=== PATIENT | female | born 1960 | race Caucasian/White ===

== ENCOUNTER → 2017-09-03 | Outpatient (CLI) | payer OTHER | LOC: MC.RAD 12:58 | DX: Z12.31 Encounter for screening mammogram for malignant neoplasm of breast (principal) ==

== ENCOUNTER → 2019-03-03 | Outpatient (CLI) | payer OTHER | LOC: MC.RAD 11:26 | DX: Z12.31 Encounter for screening mammogram for malignant neoplasm of breast (principal) ==

== ENCOUNTER → 2020-07-09 | Outpatient (CLI) | payer OTHER | LOC: MC.RAD 15:08 | DX: Z12.31 Encounter for screening mammogram for malignant neoplasm of breast (principal) ==

== ENCOUNTER → 2020-07-15 | Outpatient (CLI) | payer OTHER | LOC: MC.RAD 08:16 | DX: R92.2 Inconclusive mammogram (principal) ==

== ENCOUNTER → 2021-07-23 | Outpatient (CLI) | payer OTHER | END | disposition still patient (30) | LOC: MC.RAD 12:00 | DX: Z12.31 Encounter for screening mammogram for malignant neoplasm of breast (principal); R92.0 Mammographic microcalcification found on diagnostic imaging of breast ==

== ENCOUNTER → 2021-07-25 | Outpatient (CLI) | payer OTHER | LOC: MC.RAD 06:59 | DX: R92.0 Mammographic microcalcification found on diagnostic imaging of breast (principal) ==

== ENCOUNTER → 2021-08-06 | Outpatient (CLI) | payer OTHER | LOC: MC.RAD 06:51 | DX: R92.1 Mammographic calcification found on diagnostic imaging of breast (principal) ==

== ENCOUNTER → 2022-03-10 | Outpatient (CLI) | payer BC | LOC: MC.RAD 03-03 13:00 | DX: Z98.890 Other specified postprocedural states (principal) ==

== ENCOUNTER → 2022-08-04 | Outpatient (CLI) | payer BC | LOC: MC.RAD 12:57 | DX: Z12.31 Encounter for screening mammogram for malignant neoplasm of breast (principal) ==

== ENCOUNTER → 2023-08-24 | Outpatient (CLI) | payer BC | LOC: CANSCHCLI → MC.RAD 08-17 10:15 | DX: Z12.31 Encounter for screening mammogram for malignant neoplasm of breast (principal) ==